=== PATIENT | male | born 1990 | race American Indian/Alaskan Native ===

== ENCOUNTER 2021-03-26 12:13 | Emergency (ER) | payer SELFPAY ==
[2021-03-26 12:50] VITALS: BP 105/48
--- NOTE | 2021-03-26 13:05 | Emergency Department Report ---
Suture/Staple Removal - HPI Chief Complaint: Laceration/Recheck/Suture Stated Complaint: LEFT HAND LACERATION Time Seen by Provider: 03/26/21 13:04 When Sutures or Laine Placed: >14 Days Ago Wound Location: Left knee ED Review of Systems ROS: Stated complaint: LEFT HAND LACERATION Other details as noted in HPI Comment: All other systems reviewed and negative Musculoskeletal: arthralgia Skin: other (Left knee laceration ) ED Past Medical Hx - Past Medical History Previous Medical History?: No - Surgical History Past Surgical History?: No Suture Removal Exam - Exam General: Vital signs noted. No distress. Alert and acting appropriately. Wound: Yes Pathologic Erythema, Yes Tenderness (Mild mainly around wound ), Yes Wound Dehiscence (yes, mild proximal aspect of wound. ), No Drainage, No Pus Other Systems: All other systems reviewed and are unremarkable. ED Course Vital Signs 03/26/21 12:48 Temperature 98.0 F Pulse Rate 67 Respiratory 18 Rate Blood Pressure 105/48 [Right] O2 Sat by Pulse 98 Oximetry - Procedure Description Procedures done: Suture removal: Left knee. All sutures removed. No complications and patient tolerated well. No signs of infection. Critical care attestation.: If time is entered above; I have spent that time in minutes in the direct care of this critically ill patient, excluding procedure time. ED Disposition Clinical Impression: Visit for suture removal Disposition: TO HOME OR SELFCARE Condition: Stable Instructions: Wound Closure Removal, Care After Additional Instructions: Keep wound clean with soap and water. Dry well after each cleaning. You can continue using the Neosporin. I recommend I continue doing this for another 1 week. Follow-up with your primary care doctor. Return to the ER if your symptoms changes or worsens in any way. Referrals: KATIANA STEVENSON MD [Staff Physician] - 3-5 Days Time of Disposition: 13:15
--- NOTE | 2021-03-26 14:27 | Emergency Department Report ---
- General Chief Complaint: Laceration/Recheck/Suture Stated Complaint: LEFT HAND LACERATION Time Seen by Provider: 03/26/21 13:04 Source: patient Mode of arrival: Ambulatory Limitations: No Limitations - History of Present Illness Initial Comments: 30-year-old -[place] male with no past medical history presents to the emergency room for a laceration to the palm of his left hand last night. Patient states that he was helping take an engine out of a vehicle when it fell and cut his hand. Patient comes in today to be evaluated. Patient report he is up-to-date on his tetanus as he had it when he was incarcerated last year. Patient denies any past medical history. Onset/Timin -: days(s) Time: 21:00 Extremity Location: Left: Hand (Palmar side approximately 4 cm) Place: work Patient Tetanus UTD: Yes Context: accidental Associated Symptoms: pain Treatments Prior to Arrival: other (None) - Related Data Previous Rx's Medication Instructions Recorded Last Taken Type Sulfamethoxazole/Trimethoprim 1 each PO BID 7 Days #14 tablet 03/26/21 Unknown Rx [Bactrim DS TAB] Allergies Allergy/AdvReac Type Severity Reaction Status Date / Time Penicillins Allergy Unknown Verified 03/26/21 12:46 ED Review of Systems ROS: Stated complaint: LEFT HAND LACERATION Other details as noted in HPI Comment: All other systems reviewed and negative ED Past Medical Hx - Past Medical History Previous Medical History?: No - Surgical History Past Surgical History?: No - Medications Home Medications: Home Medications Medication Instructions Recorded Confirmed Last Taken Type Sulfamethoxazole/Trimethoprim 1 each PO BID 7 Days #14 tablet 03/26/21 Unknown Rx [Bactrim DS TAB] ED Physical Exam - General Limitations: No Limitations General appearance: alert, in no apparent distress, other (Very pleasant) - Head Head exam: Present: atraumatic, normocephalic - Eye Eye exam: Present: normal appearance - ENT ENT exam: Present: mucous membranes moist - Neck Neck exam: Present: full ROM - Respiratory Respiratory exam: Absent: accessory muscle use - Cardiovascular Cardiovascular Exam: Present: regular rate - Back Exam Back exam: Present: full ROM - Neurological Exam Neurological exam: Present: alert, oriented X3, normal gait - Expanded Skin Exam Expanded Type of lesion: Present: laceration Distribution of rash: involves palms/soles, LUE Description of rash: Present: size (4 cm), tenderness. Absent: erythematous, swelling ED Course Vital Signs 03/26/21 12:48 Temperature 98.0 F Pulse Rate 67 Respiratory 18 Rate Blood Pressure 105/48 [Right] O2 Sat by Pulse 98 Oximetry ED Medical Decision Making - Medical Decision Making 30-year-old -[place] male with no past medical history presents to the emergency room for a laceration to the palm of his left hand last night. Patient states that he was helping take an engine out of a vehicle when it fell and cut his hand. Patient comes in today to be evaluated. Patient report he is up-to-date on his tetanus as he had it when he was incarcerated last year. Patient denies any past medical history. Provider made attempt to place 1 suture to help approximation to heal. Skin is to tough and suture tore. This provider placed thick dressing of gauze to the palm of the hand and wrapped it with [place]. Patient washed hands thoroughly with antibacterial soap and Betadine prior to procedure attempt. 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 Critical care attestation.: If time is entered above; I have spent that time in minutes in the direct care of this critically ill patient, excluding procedure time. ED Disposition Clinical Impression: Laceration of left palm Qualifiers: Encounter type: initial encounter Qualified Code(s): S61.412A - Laceration without foreign body of left hand, initial encounter Disposition: - TO HOME OR SELFCARE Is pt being admited?: No Does the pt Need Aspirin: No Condition: Stable Additional Instructions: Keep wound clean with soap and water. Dry well after each cleaning. You can continue using the Neosporin. I recommend I continue doing this for another 1 week. Follow-up with your primary care doctor. Return to the ER if your symptoms changes or worsens in any way. Prescriptions: Sulfamethoxazole/Trimethoprim [Bactrim DS TAB] 1 each PO BID 7 Days #14 tablet Referrals: PRIMARY CAREMD [Primary Care Provider] - 3-5 Days Forms: Work/School Release Form(ED)
== END 2021-03-26 14:39 | disposition home or self-care (01) ==
LOC: ED 12:13
DX: S61.412A Laceration without foreign body of left hand, initial encounter (principal); Z88.0 Allergy status to penicillin; Z79.899 Other long term (current) drug therapy; W26.8XXA Contact with other sharp object(s), not elsewhere classified, initial encounter; Y93.89 Activity, other specified; Y92.89 Other specified places as the place of occurrence of the external cause; Y99.8 Other external cause status
CPT/HCPCS: 99282